=== PATIENT | female | born 1990 | race Caucasian/White ===

== ENCOUNTER 2017-06-30 13:20 | Inpatient (IN) | payer MEDICAID, OTHER ==
[~2017-06-30] VITALS: Ht 167.6 cm; Wt 92.0 kg
--- NOTE | 2017-06-30 13:29 | TRIAGE ---
OB Triage Datetime Report Generated by CPN: 06/30/2017 13:28 Datetime: 06/30/2017 13:28 Assessment Type: Triage Maternal Assessment Level of Consciousness: Fully Conscious DTR's/Clonus: DTRs 2+; No Clonus Headache: Denies Blurred Vision: No Respiratory Effort: Unlabored; Regular Rhythm; Equal Expansion Breath Sounds, Left: Clear and Equal Breath Sounds, Right: Clear and Equal Nausea/Vomiting: Denies RUQ Epigastric Pain: Denies Lower Extremities Edema: None Degree: None Upper Extremities Edema: None Degree: None Facial Edema: None Fall Risk Assessment History of Falling: (0) No Secondary Diagnosis: (0) No Ambulatory Aid: (0) Bedrest/Nurse Assist IV Therapy: (0) No Gait: (0) Normal/Bedrest/Immobile Mental Status: (0) Oriented to Own Ability Fall Score: 0 Fall Risk Score Definition: No Risk: No action required Datetime: 06/30/2017 13:02 Time of Arrival: 06/30/2017 13:02 Arrived By: Wheelchair Arrived From: Home Chief Complaint: PT CAME IN C/O LABOR AND SPOTTING BLOOD Movement: Present Contractions: Regular Rupture of Membranes: Denies Vaginal Discharge: Denies Recent Sexual Intercouse: Yes Abdominal Trauma: Not Applicable Additional Patient Complaints: NONE Time Provider Notified: 06/30/2017 13:22 Provider Notified: JUHI MONCADA Initial Plan: MONITOR AND VE
[2017-06-30 13:38] VITALS: BP 116/72; PULSE 85; RESP 18
[2017-06-30 13:46] VITALS: Ht 167.6 cm; Wt 92.0 kg
[2017-06-30] MEDS ORDERED: OXYTOCIN 30 UNITS/LR 500 ML IV SCH ×2 (14:00)
[2017-06-30] MEDS ORDERED: OXYTOCIN 30 UNITS/LR 500 ML IV PRN ×2 (14:00→20:00)
[2017-06-30] MEDS ORDERED: MINERAL OIL LIGHT 10 ML VIAL TOP ONE (14:00)
[2017-06-30] MEDS ORDERED: DINOPROSTONE 10 MG VAG SUPP VAG ONE (14:00)
[2017-06-30] MEDS ORDERED: IBUPROFEN 600 MG TAB PO PRN (14:00)
[2017-06-30] MEDS ORDERED: BUTORPHANOL 2 MG INJ IV PRN (14:00)
[2017-06-30] MEDS ORDERED: MISOPROSTOL 200 MCG TAB PR PRN ×2 (14:00→20:00)
[2017-06-30] MEDS ORDERED: AMPICILLIN 2 GM/NS (PMX) 100 ML IV ONE (14:00)
[2017-06-30] MEDS ORDERED: LACTATED RINGER'S 1,000 ML IV PRN (14:00)
[2017-06-30] MEDS: LACTATED RINGER'S 1,000 ML IV SCH ×2 (14:08→15:05)
[2017-06-30 14:16] LABS: BASOPHIL # 0.1 10^3/ul (0.0-0.1); BASOPHILS % 0.4 % (0.0-2.0); EOSINOPHILS % 0.2 % (0.0-7.0); HEMATOCRIT 33.3 % (37.0-47.0); HEMOGLOBIN 10.7 g/dl (12.0-16.0); LYMPHOCYTES # 1.6 10^3/ul (0.8-2.9); LYMPHOCYTES % 13.2 % (15.0-51.0); MEAN CORPUSCULAR HEMOGLOBIN 26.2 pg (29.0-33.0); MEAN CORPUSCULAR HGB CONC 32.1 g/dl (32.0-37.0); MEAN CORPUSCULAR VOLUME 81.4 fl (82.0-101.0); MONOCYTE # 0.7 10^3/ul (0.3-0.9); MONOCYTES % 6.1 % (0.0-11.0); NEUTROPHIL # 9.6 10^3/ul (1.6-7.5); PLATELET COUNT 291 10^3/UL (140-415); RED BLOOD COUNT 4.09 10^6/ul (4.20-5.40); RED CELL DISTRIBUTION WIDTH 16.6 % (11.5-14.5); WHITE BLOOD COUNT 12.1 10^3/ul (4.8-10.8)
[2017-06-30 14:31] LABS: INR 0.98
[2017-06-30 14:32] LABS: PARTIAL THROMBOPLASTIN TIME 29.3 Sec (25.0-35.0)
[2017-06-30] MEDS ORDERED: FENTAnyl 2MCG/ML-ROPIV 0.2% 100 ML ONE (14:46)
--- NOTE | 2017-06-30 14:54 | RADRPT ---
PROCEDURE: US OB. CLINICAL INDICATION: Labor. No care. TECHNIQUE: Multiple sonographic OB images of the pelvis were obtained. The images were reviewed o n a PACS workstation. COMPARISON: No prior studies are available for comparison. FINDINGS: There is a single viable intrauterine gestation. Cardiac activity is present with 154 beats per min abhay. There is a vertex presentation. Measurements were made in order to determine age. The results are as follows: BPD =9 cm HC =31.6 cm AC =10.8 cm FL =6.9 cm. Estimated gestational age of approximately 36 weeks 5 days. The estimated date of delivery is 07/23/2017. The EFW = 3322 grams. The placenta is fundal. There is no evidence for an abruption or placenta previa. There are no adnexal masses. IMPRESSION: 1. Single live intrauterine with an estimated gestational age of 36 weeks and 5 days. 2. Estimated gestational weight of 3322 grams. RPTAT: HPNM Physician Lanie Date Time Electronically viewed and signed by Physician Lanie on 06/30/2017 14:54 /
[2017-06-30] MEDS ORDERED: LIDOCAINE 1% (MPF) 30 ML INJ INJ PRN (15:41)
[2017-06-30 16:07] LABS: BARBITURATES Negative (NEGATIVE); BENZODIAZEPINES Negative (NEGATIVE); CANNABINOIDS Negative (NEGATIVE); COCAINE Negative (NEGATIVE); OPIATES Negative (NEGATIVE)
[2017-06-30] MEDS ORDERED: ONDANSETRON 4 MG INJ IV PRN (17:00)
[2017-06-30] MEDS ORDERED: DIPHENHYDRAMINE 50 MG INJ IV PRN (17:00)
[2017-06-30] MEDS ORDERED: FENTAnyl 2MCG/ML-ROPIV 0.2% 100 ML BAG EPI SCH (17:00)
[2017-06-30] MEDS ORDERED: NALOXONE (0.4 MG/ML) INJ IV PRN (17:00)
--- NOTE | 2017-06-30 17:09 | HP ---
Date/Time of Note Date/Time of Note DATE: 06/30/17 TIME: 17:04 OB - History Hx of Present Free Text/Dictation 27 y.o here at triage with c/outerine contractions q2-4min apart with intact membrane at 37w6d her course was unevenful, bur record is not available at present VE 3cm/80%/-2 GBS unknown admitted for expectant management Chief Complaint: UC's Estimated Due Date: Jul 15, 2017 : 4 Para: 3 Spontaneous : 0 Therapeutic : 0 Care: Good Care Ultrasounds: Normal mid trimester US Obstetrical Complications: None Medical Complications: None Past Family/Social History * Past Medical, Surgical, Family and Obstetric Histories reviewed from chart. Blood Type: O+ Rubella: immune RPR/VDRL: Negative GBS Status: Unknown HBsAG: Negative OB Admission Exam Vital Signs Vital Signs Vital Signs Date Time Temp Pulse Resp B/P Pulse Ox O2 Delivery O2 Flow Rate FiO2 06/30/17 13:38 98.5 85 18 116/72 Physical Exam HEENT: WNL Heart: Rhythm Normal Lungs: Clear, Equal Abdomen: WNL Extremities: Normal Reflexes: Normal Cervical Dilatation: 3cm Effacement: 75% Station: -2 Membranes: Intact Amniotic Fluid: Unevaluable Heart Rate: 140's Accelerations: Accelerations Present Decelerations: No Decelerations Varibility: Moderate Contractions on Admission: < 5 Minutes Apart Intensity: Moderate Last 72 hours Lab Results CBC & BMP 06/30/17 14:00 OB Assessment/Plan Reason for admission: active labor Other Assessment: IUP 37w6d Plan: Expectant Management MARIAMA REYNAGA MD Jun 30, 2017 17:09
--- NOTE | 2017-06-30 17:12 | LDN ---
Date/Time of Note Date/Time of Note DATE: 06/30/17 TIME: 17:10 Delivery Summary normal vaginal delivery Weeks of Gestation 37w6d Placenta Delivered: Spontaneously Meconium: none Episiotomy: No Perineal laceration: 1 Laceration repair: 000ch gut SH Anesthesia type: Epidural Estimated blood loss: 100 Sponge & Needle done & correct: Yes All needle counts correct: Yes Any foreign bodies felt in the: No Problems: Infant Delivery Information Sex Sex: female Apgars 1 Minute: 9 5 Minute: 9 Suctioning Nose & mouth suctioned at lenin: Yes Delee suction performed: No Umbilical Cord Umbilical cord with: 3 Vessels Cord presentations: nuchal cord Nuchal cord present X: 2 Mother & Baby Disposition Disposition Mom & Baby to Maternity; Good: Yes Mom transferred to: Other Baby to NICU: No () MARIAMA REYNAGA MD Jun 30, 2017 17:12
[2017-06-30] MEDS ORDERED: AMPICILLIN 1 GM/NS (PMX) 50 ML IV SCH (18:00)
[2017-06-30 20:00] VITALS: BP 118/62; PULSE 89; RESP 18
[2017-06-30] MEDS ORDERED: OXYCODONE/ASPIRIN (4.88/325) TAB PO PRN ×2 (20:00)
[2017-06-30] MEDS ORDERED: METHYLERGONOVINE 0.2 MG INJ IM PRN (20:00)
[2017-06-30] MEDS ORDERED: CARBOPROST 250 MCG INJ IM PRN (20:00)
[2017-06-30] MEDS ORDERED: LANOLIN 7 GM TUBE TOP PRN (20:00)
[2017-06-30] MEDS ORDERED: ZOLPIDEM 5 MG TAB PO PRN (20:00)
[2017-06-30] MEDS ORDERED: BENZOCAINE 20% 56 ML SPRAY TOP PRN (20:00)
[2017-06-30] MEDS ORDERED: WITCH HAZEL/GLYCERIN PAD PR PRN (20:00)
[2017-06-30] MEDS: SENNA/DOCUSATE NA (8.6MG/50MG) TAB PO SCH (20:16)
[2017-06-30 20:30] VITALS: BP 105/56; PULSE 91; RESP 18
[2017-06-30] MEDS: IBUPROFEN 600 MG TAB PO SCH (23:57)
[2017-06-30 23:58] VITALS: BP 110/53; PULSE 95; RESP 18
[2017-07-01 04:00] VITALS: BP 90/48; PULSE 82; RESP 18
[2017-07-01] MEDS: IBUPROFEN 600 MG TAB PO SCH ×4 (05:28→23:53)
[2017-07-01 08:06] LABS: BASOPHIL # 0.1 10^3/ul (0.0-0.1); BASOPHILS % 0.5 % (0.0-2.0); EOSINOPHILS # 0.1 10^3/ul (0.0-0.5); EOSINOPHILS % 0.3 % (0.0-7.0); HEMATOCRIT 32.9 % (37.0-47.0); HEMOGLOBIN 10.1 g/dl (12.0-16.0); LYMPHOCYTES # 2.5 10^3/ul (0.8-2.9); LYMPHOCYTES % 16.6 % (15.0-51.0); MEAN CORPUSCULAR HEMOGLOBIN 25.3 pg (29.0-33.0); MEAN CORPUSCULAR HGB CONC 30.7 g/dl (32.0-37.0); MEAN CORPUSCULAR VOLUME 82.5 fl (82.0-101.0); MEAN PLATELET VOLUME 11.5 fl (7.4-10.4); MONOCYTE # 0.9 10^3/ul (0.3-0.9); MONOCYTES % 5.9 % (0.0-11.0); NEUTROPHIL # 11.2 10^3/ul (1.6-7.5); NEUTROPHILS % 75.8 % (39.0-77.0); PLATELET COUNT 279 10^3/UL (140-415); RED BLOOD COUNT 3.99 10^6/ul (4.20-5.40); RED CELL DISTRIBUTION WIDTH 17.3 % (11.5-14.5); WHITE BLOOD COUNT 14.8 10^3/ul (4.8-10.8)
[2017-07-01 08:15] VITALS: BP 98/63; PULSE 72; RESP 16
[2017-07-01 11:00] VITALS: BP 109/61; PULSE 72; RESP 16
--- NOTE | 2017-07-01 13:30 | PN ---
Date/Time of Note Date/Time of Note DATE: 07/01/17 TIME: 13:28 OB Subjective Subjective Subjective no c/o OB Objective Objective Objective vss febrile fundus firm lochia min calf neg for tenderness OB Assessment/Plan Other Assessment: stable post normal vaginal delivery Other plan: discharge home in am MARIAMA REYNAGA MD Jul 01, 2017 13:30
[2017-07-01 15:00] VITALS: BP 106/62; PULSE 74; RESP 16
[2017-07-01] MEDS: SENNA/DOCUSATE NA (8.6MG/50MG) TAB PO SCH ×2 (15:03→21:49)
[2017-07-01 20:45] VITALS: BP 107/63; PULSE 66; RESP 16
[2017-07-02 04:00] VITALS: BP 95/53; PULSE 81; RESP 18
[2017-07-02] MEDS: IBUPROFEN 600 MG TAB PO SCH ×2 (05:55→11:16)
[2017-07-02 07:40] VITALS: BP 94/52; PULSE 67; RESP 16
[2017-07-02] MEDS: SENNA/DOCUSATE NA (8.6MG/50MG) TAB PO SCH (08:43)
[2017-07-02] MEDS ORDERED: DIPHTH/TET/ACEL PERTUSS (ADULT) 0.5 ML VIAL IM* ONE (09:00)
--- NOTE | 2017-07-02 13:46 | PD.PPDC ---
CHEMIST INSTRUMENTATION Discharge Instruction Diagnosis Final Diagnosis: s/p normal vaginal delivery Condition Patient Condition: Stable Diet Diet: Resume Regular Diet Activity/Restrictions Activity: May Shower Restrictions: No Lifting No Sexual Activity Nothing in the Vagina No [place] No Tampons, douche Follow-up Follow-up with Physician: 2, Week/Weeks Return to clinic for [employer] Instructions: Fever greater than 101 Chills Worsening abdominal pain Excessive Vaginal Bleeding More than 2 pads per hour Unable to tolerate diet OB Instructions: Breast Tenderness Depression Blurried Vision Headache MARIAMA REYNAGA MD Jul 02, 2017 13:46
--- NOTE | 2017-07-02 13:49 | DS ---
Date/Time of Note Date/Time of Note DATE: 07/02/17 TIME: 13:48 Obstetrical Discharge Record Final Diagnosis Final Diagnosis: Term delivered Vaginal Delivery Obstetrical Delivery: Spontaneous, Laceration, Repaired Complications Rupture of Membranes: No Condition on Discharge Physical Assessment Last Vitals: vss afebrile Voiding: Yes Bowel Movement: Yes Breast: Soft, non-tender Fundus: Firm Calf Tenderness: No Patient Condition: Stable MARIAMA REYNAGA MD Jul 02, 2017 13:49
== END 2017-07-02 15:40 | disposition home or self-care (01) | DRG 775 ==
LOC: OBT 13:20 → L-D 13:22 → OBT 13:25 → PP1 19:52
PROVIDERS: ADMIT Obstetrics & Gynecology; ATTEND Obstetrics & Gynecology
PROC: 10E0XZZ Delivery of Products of Conception, External Approach (ICD-10-PCS; principal; 2017-06-30)
PROC: 0HQ9XZZ Repair Perineum Skin, External Approach (ICD-10-PCS; 2017-06-30)
PROC: 3E0P3VZ Introduction of Hormone into Female Reproductive, Percutaneous Approach (ICD-10-PCS; 2017-06-30)
DX: O69.81X0 Labor and delivery complicated by cord around neck, without compression, not applicable or unspecified (principal); O70.0 First degree perineal laceration during delivery; Z3A.37 37 weeks gestation of pregnancy; Z37.0 Single live birth
CPT/HCPCS: 62319; 76815; 80307; 85025; 85610; 85730; 86592; 86900; 86901; 87340; 90715; G0463; J0290; J2590; J3010; J7120